=== PATIENT | female | born 1975 | race Caucasian/White ===

== ENCOUNTER 2018-04-11 07:43 | Day surgery (SDC) | payer OTHER ==
[~2018-04-11] VITALS: Ht 177.8 cm; Wt 63.6 kg
[2018-04-11 08:00] VITALS: BP 127/72; PULSE 68; RESP 18; TEMP 98.1; O2SAT 98
[2018-04-11] MEDS ORDERED: SODIUM CHLOR 0.9% 1000 ML INJ 1,000 ML IV SCH (08:15)
[2018-04-11 08:34] LABS: AUTOMATED NEUTROPHIL # 1.3 TH/MM3 (1.8-7.7); BASOPHIL % 0.8 % (0.0-2.0); EOSINOPHIL # 0.1 TH/MM3 (0-0.4); EOSINOPHIL % 3.1 % (0.0-4.0); HEMATOCRIT 35.9 % (35.0-46.0); HEMOGLOBIN 12.4 GM/DL (11.6-15.3); LYMPH % 37.6 % (9.0-44.0); LYMPHOCYTE # 1.1 TH/MM3 (1.0-4.8); MEAN CELL VOLUME 89.1 FL (80.0-100.0); MEAN CORPUSCULAR HEMOGLOBIN 30.8 PG (27.0-34.0); MEAN CORPUSCULAR HGB CONC 34.6 % (32.0-36.0); MEAN PLATELET VOLUME 8.9 FL (7.0-11.0); MONOCYTE # 0.4 TH/MM3 (0-0.9); NEUT % 44.5 % (16.0-70.0); PLATELET COUNT 190 TH/MM3 (150-450); RED BLOOD COUNT 4.03 MIL/MM3 (4.00-5.30); RED CELL DISTRIBUTION WIDTH 13.6 % (11.6-17.2); WHITE BLOOD COUNT 2.9 TH/MM3 (4.0-11.0)
[2018-04-11 08:50] LABS: PROTHROMBIN TIME - PATIENT 10.1 SEC (9.8-11.6)
[2018-04-11] MEDS ORDERED: RIZA10TA2 PO (08:50)
[2018-04-11] MEDS ORDERED: [UNRECOGNIZED DRUG - REMARK] (08:50)
[2018-04-11] MEDS ORDERED: Adrenal PX (08:50)
[2018-04-11] MEDS ORDERED: TRAM50TA PO (08:50)
[2018-04-11] MEDS ORDERED: BUTALBITAL (08:50)
[2018-04-11 08:53] LABS: BICARBONATE 26.8 MEQ/L (21.0-32.0); CALCIUM 8.6 MG/DL (8.5-10.1); CREATININE 0.59 MG/DL (0.50-1.00)
[2018-04-11 10:00] VITALS: BP 104/60; PULSE 62; RESP 18; TEMP 98.6; O2SAT 97
--- NOTE | 2018-04-11 10:10 | PD.RAD ---
Post Procedure Progress Note Pre Procedure Diagnosis: (1) Headache Post Procedure Diagnosis: (1) Headache Procedure Date: April 11, 2018 Supervising Radiologist: Max Dang Proceduralist/Assist: Michelle Mcmanus, RT(R)(), Mk Bartlett RT(R) Anesthesia: Local Plan of Activity Patient to Unit: ROPU Patient Condition: Good See PACS Report for procedural detail/treatment Spinal Procedure Lumbar Puncture L3-L4 Fluid Removal (CCs): 16 Fluid Description: Clear Puncture Time: 09:55 Max Dang MD April 11, 2018 10:10
[2018-04-11 11:24] LABS: TOTAL PROTEIN,CSF 40.1 MG/DL (15.0-45.0)
[2018-04-11 11:55] VITALS: BP 114/66; PULSE 71; RESP 20; O2SAT 97
[2018-04-11 12:23] LABS: CSF LYMPHOCYTES 0 %; CSF NEUTROPHILS 0 %; RBC TUBE #1 1 /MM3; SUPERNATE COLOR TUBE #1 CLEAR (CLEAR); WBC TUBE #1 0 /MM3 (0-10)
[2018-04-11 12:24] LABS: RBC TUBE #4 2 /MM3; SUPERNATE COLOR TUBE #1 CLEAR (CLEAR); WBC TUBE #4 0 /MM3 (0-10)
[2018-04-11 12:25] LABS: CSF LYMPHOCYTES 0 %; CSF NEUTROPHILS 0 %
--- NOTE | 2018-04-11 13:50 | RADRPT ---
EXAM DATE/TIME: 04/11/2018 09:49 [facility] COMPARISON: No previous studies available for comparison. INDICATIONS : Patient presents with chronic headaches in need of lumbar puncture for evaluation. MEDICAL HISTORY : Chronic headache Fatigue Lyme disease Anemia SURGICAL HISTORY : ACL replacement Bunion surgery ENCOUNTER: Initial ACUITY: > 1 year PAIN SCORE: 2/10 LOCATION: Head LUMBAR PUNCTURE TIME: 0951 hours FLUORO TIME: 0.7 minutes IMAGE SERIES: 1 ACCESS LEVEL: L3-4 FLUID: 16 cc of clear CSF was collected and sent to the laboratory for analysis. PROCEDURE : 1. Fluoroscopic guided lumbar puncture. The risks, benefits and alternatives to the procedure were explained and verbal and written consent w as obtained. The site was prepped in sterile fashion. Full sterile technique was used, including ca p, mask, sterile gloves and gown and a large sterile sheet. Hand hygiene and 2% chlorhexidine and/or betadine/alcohol prep was utilized per protocol for cutaneous antisepsis. The skin and subcutaneous tissues were infiltrated with local anesthetic solution. With fluoroscopic guidance the lumbar thecal sac was punctured at the level above. The fluid describ ed above was removed without difficulty. The patient tolerated the procedure well and there were no complications. CONCLUSION: Uncomplicated fluoroscopically guided lumbar puncture. Max Dang MD on April 11, 2018 at 13:47 Board Certified Radiologist. This report was verified electronically.
[2018-04-14 10:41] LABS: CSF CRYPTOCOCCUS AG CONF ND (NOT DETECTD)
[2018-04-14 13:55] LABS: OLIGOCLONAL BANDING CSF 0 bands; OLIGOCLONAL BANDING INTERPRET 0 bands (<4); OLIGOCLONAL BANDING SERUM 0 bands
[2018-04-15] MEDS ORDERED: BUTA1CAP PO (13:44)
[2018-04-15 23:52] LABS: CSF CRYPTOCOCCUS ANTIGEN NOT DETECTED (NEGATIVE)
[2018-04-16 23:54] LABS: VDRL CSF NON-REACTIVE (NON-REACTVE)
== END 2018-04-11 12:00 | disposition home or self-care (01) ==
LOC: HROP 07:43 → HRIP 07:46 → HROP 12:00
PROVIDERS: ATTEND Psychiatry & Neurology Vascular Neurology
DX: B99.9 Unspecified infectious disease (principal); R51 Headache
CPT/HCPCS: 62270; 77003; 80048; 82945; 83873; 83916; 84157; 85025; 85610; 85730; 86403; 86592; 86618; 87015; 87070; 87102; 87116; 87205; 87206; 88108; 89051; J7030

== ENCOUNTER → 2018-04-15 | Day surgery (SDC) | payer OTHER ==
[~2018-04-15] VITALS: Ht 177.8 cm; Wt 63.5 kg
[~2018-04-15] MED LIST: Adrenal PX; BUTA1CAP PO; BUTALBITAL; CHLORHEXIDINE GLUCONATE 2 % 1 PACK (2 CLOTHS) TOPICAL PRN; LACTATED RINGER'S 1000 ML IV PRN; LIDOCAINE HCL 1% 30 ML VIAL ONE; METOPROLOL TARTRATE 25 MG TAB PO PRN; POVIDONE IODINE 5% (ANTISEPSIS KIT) 4 APPLICATIONS EACH NARE PRN; RIZA10TA2 PO; SODIUM CHLORID 0.9% 500 ML IV PRN; TRAM50TA PO; [UNRECOGNIZED DRUG - REMARK]
[2018-04-15 15:10] VITALS: BP 131/77; PULSE 61; RESP 18; TEMP 98.3; O2SAT 100
== END | disposition home or self-care (01) ==
LOC: HSDC 12:50
PROVIDERS: ATTEND Anesthesiology
DX: G97.1 Other reaction to spinal and lumbar puncture (principal)
CPT/HCPCS: 62273